=== PATIENT | female | born 1960 | race Caucasian/White ===

== ENCOUNTER 2025-01-27 07:34 | Day surgery (SDC) | payer MEDICARE ==
[~2025-01-27] VITALS: Ht 175.3 cm; Wt 97.3 kg
[~2025-01-27 07:34] MED LIST: CINN500C15; CLINDAMYCIN 1%; EMPA25TA PO; GABA-1405 PO; HYDR12.55 PO; INSU100I31; LISI20TA28 PO; MELO-102 PO; METF-438 PO; ROSU10TA72 PO; SITA100T11 PO
[2025-01-27 08:29] VITALS: BP 144/84; PULSE 83; RESP 16
[2025-01-27] MEDS: dextrose 5%-normal saline 1,000 ML IV SCH (09:17)
[2025-01-27] MEDS: acetaminophen 325mg tablet PO ONE (12:38)
[2025-01-27] MEDS ORDERED: fentaNYL/PF 50MCG/1 ML 2ML syringe ONE (13:23)
[2025-01-27] MEDS ORDERED: MIDAZolam 1 MG/ML 5ML VIAL ONE (13:24)
[2025-01-27 14:15] VITALS: BP 126/77; PULSE 78; RESP 12; O2SAT 96
[2025-01-27 14:25] VITALS: BP 123/76; PULSE 78; RESP 14; O2SAT 94
[2025-01-27 14:35] VITALS: BP 125/73; PULSE 79; RESP 11; O2SAT 95
[2025-01-27 14:45] VITALS: BP 125/75; PULSE 78; RESP 14; O2SAT 94
== END 2025-01-27 15:20 | disposition home or self-care (01) ==
LOC: GI LAB 07:34
PROVIDERS: ATTEND Internal Medicine Gastroenterology
DX: K92.1 Melena (principal); K63.5 Polyp of colon; K57.30 Diverticulosis of large intestine without perforation or abscess without bleeding; I10 Essential (primary) hypertension; E11.9 Type 2 diabetes mellitus without complications; Z79.84 Long term (current) use of oral hypoglycemic drugs; Z88.8 Allergy status to other drugs, medicaments and biological substances; Z98.890 Other specified postprocedural states
CPT/HCPCS: 45381; 45385; 82948; 88305; 99153; A4620; C1889; G0500; J2250; J3010; J7030; J7042; J7060; Z7512; 45335; 99152